=== PATIENT | female | born 2000 | race African-American/Black ===

== ENCOUNTER 2025-04-22 22:19 | Emergency (ER) | payer OTHER ==
[2025-04-22 22:23] VITALS: BP 119/70; PULSE 85; RESP 17; TEMP 98.1; BMI 21.3
[2025-04-22] MEDS: BISACODYL 5 MG TABLET.DR (FP) PO ONE (23:44)
[2025-04-22] MEDS: MINERAL OIL ENEMA 133 ML ENEMA RC ONE (23:45)
== END 2025-04-23 00:35 | disposition home or self-care (01) ==
LOC: JER 22:19
DX: O99.613 Diseases of the digestive system complicating pregnancy, third trimester (principal); K59.00 Constipation, unspecified; O26.893 Other specified pregnancy related conditions, third trimester; R11.0 Nausea; Z3A.34 34 weeks gestation of pregnancy
CPT/HCPCS: 99283-25